=== PATIENT | female | born 1980 | race American Indian/Alaskan Native ===

== ENCOUNTER 2017-02-27 16:30 | Emergency (ER) | payer MEDICARE ==
[2017-02-27 16:57] VITALS: BP 113/78
[2017-02-27 17:33] LABS: Urine Drugs of Abuse Note Disclamer
[2017-02-27 17:35] LABS: Basophils % (Auto) 0.3 % (0.0-1.8); Eosinophils % (Auto) 0.3 % (0.0-4.3); Hematocrit 32.1 % (30.3-42.9); Hemoglobin 10.3 gm/dl (10.1-14.3); Mean Corpuscular HGB Conc 32 % (30-34); Mean Corpuscular Hemoglobin 26 pg (28-32); Mean Corpuscular Volume 82 fl (79-97); Platelet Count 243 K/mm3 (140-440); Red Blood Count 3.91 M/mm3 (3.65-5.03); Red Cell Distribution Width 14.6 % (13.2-15.2); White Blood Count 7.3 K/mm3 (4.5-11.0)
[2017-02-27 17:43] LABS: Anion Gap 15 mmol/L; BUN/Creatinine Ratio 20; Blood Urea Nitrogen 12 mg/dL (7-17); Calcium 8.7 mg/dL (8.4-10.2); Carbon Dioxide 28 mmol/L (22-30); Chloride 98.5 mmol/L (98-107); Glucose 102 mg/dL (65-100); Sodium 137 mmol/L (137-145)
[2017-02-27 17:48] LABS: Bilirubin,Urine NEG (Negative); Blood,Urine NEG (Negative); Ketones,Urine 20 mg/dL (Negative); Leukocyte Esterase,Urine NEG (Negative); Mucus,Urine FEW /HPF; Nitrite,Urine NEG (Negative); Protein,Urine <15 mg/dL mg/dL (Negative); Urobilinogen,Urine < 2.0 mg/dL (<2.0)
--- NOTE | 2017-02-27 17:54 | Emergency Department Report ---
ED Psych HPI - General Chief Complaint: Medical Clearance Stated Complaint: MH EVAL/MANIC Time Seen by Provider: 02/27/17 17:12 Source: EMS Mode of arrival: Stretcher - History of Present Illness Initial Comments: Patient is a 36 years old female history of bipolar disorde,r she was sent [facility] for manic episode. patient refusing to take any medication except for Depakote. Patient stated that she is dealing with a lot of issue in [facility] mainly discrimination and not being treated well by other people but she denied any suicidal ideation or homicidal ideation. Patient does have pressured speech flights of ideas. Associated Psychiatric Symptoms: racing thoughts, delusions History of same: Yes Quality: constant - Related Data Home Medications Medication Instructions Recorded Confirmed Last Taken Divalproex ER [DepaKOTE ER] 1,000 mg PO QHS 02/27/17 02/27/17 Unknown Divalproex ER [DepaKOTE ER] 500 mg PO QDAY 02/27/17 02/27/17 Unknown Allergies Allergy/AdvReac Type Severity Reaction Status Date / Time haloperidol [From Haldol] AdvReac Unknown Verified 02/27/17 16:44 risperidone [From Risperdal] AdvReac Unknown Verified 02/27/17 16:44 ziprasidone [From Geodon] AdvReac Unknown Verified 02/27/17 16:44 ED Review of Systems ROS: Stated complaint: MH EVAL/MANIC Other details as noted in HPI Comment: All other systems reviewed and negative Constitutional: denies: chills, fever Respiratory: denies: cough, shortness of breath, SOB with exertion Cardiovascular: denies: chest pain, palpitations, dyspnea on exertion, orthopnea , edema, syncope Genitourinary: denies: urgency, dysuria, frequency, hematuria, discharge Skin: denies: rash, lesions Neurological: denies: headache, weakness, paresthesias, confusion Psychiatric: anxiety, depression, other (pressure speech, flight of ideas.). denies: auditory hallucinations, visual hallucinations, homicidal thoughts, suicidal thoughts ED Past Medical Hx - Past Medical History Previous Medical History?: Yes Additional medical history: pt with diagnosis of Bipolar, although she denies - Surgical History Past Surgical History?: Yes Additional Surgical History: bilateral knee surgery - Social History Smoking Status: Never Smoker Substance Use Type: None - Medications Home Medications: Home Medications Medication Instructions Recorded Confirmed Last Taken Type Divalproex ER [DepaKOTE ER] 1,000 mg PO QHS 02/27/17 02/27/17 Unknown History Divalproex ER [DepaKOTE ER] 500 mg PO QDAY 02/27/17 02/27/17 Unknown History ED Physical Exam - General Limitations: Altered Mental Status General appearance: alert, in no apparent distress - Head Head exam: Present: atraumatic - Eye Eye exam: Present: normal appearance - ENT ENT exam: Present: normal exam - Neck Neck exam: Present: normal inspection - Respiratory Respiratory exam: Present: normal lung sounds bilaterally. Absent: respiratory distress, wheezes, rales, rhonchi, chest wall tenderness, accessory muscle use, decreased breath sounds, prolonged expiratory - Cardiovascular Cardiovascular Exam: Present: regular rate, normal rhythm, normal heart sounds - Extremities Exam Extremities exam: Present: normal inspection - Back Exam Back exam: Present: normal inspection. Absent: CVA tenderness (R), CVA tenderness (L) - Neurological Exam Neurological exam: Present: alert, oriented X3, CN II-XII intact, normal gait - Psychiatric Psychiatric exam: Present: agitated, anxious, manic. Absent: homicidal ideation , suicidal ideation - Skin Skin exam: Present: warm, normal color ED Course Vital Signs 02/27/17 16:34 Temperature 98.7 F Pulse Rate 90 Respiratory 16 Rate Blood Pressure 113/78 O2 Sat by Pulse 100 Oximetry ED Medical Decision Making - Lab Data Result diagrams: 02/27/17 17:09 02/27/17 17:09 Critical care attestation.: If time is entered above; I have spent that time in minutes in the direct care of this critically ill patient, excluding procedure time. ED Disposition Clinical Impression: Acute psychosis Disposition: DC/TX-65 PSY HOSP/PSY UNIT Is pt being admited?: No Condition: Stable Referrals: PRIMARY CARE, [Primary Care Provider] - 3-5 Days
[2017-02-27] MEDS ORDERED: GEODON IM ONE (17:55)
[2017-02-27] MEDS ORDERED: WATER FOR INJ (PF) 10 ML ONE (18:01)
[2017-02-27] MEDS ORDERED: BENADRYL ONE (18:16)
== END 2017-02-27 23:50 ==
LOC: EEVIPCON 16:30 → ED 16:30
DX: F23 Brief psychotic disorder (principal)
CPT/HCPCS: 36415; 80048; 80307; 81001; 84703; 85025; 96372; 99285; G0480; J3486; 80320; J1200

== ENCOUNTER 2019-08-13 09:40 | Emergency (ER) | payer MEDICARE ==
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
[2019-08-13 10:57] LABS: Basophils % (Auto) 0.4 % (0.0-1.8); Hematocrit 26.8 % (30.3-42.9); Hemoglobin 8.9 gm/dl (10.1-14.3); Lymphocytes # (Auto) 1.8 K/mm3 (1.2-5.4); Mean Corpuscular HGB Conc 33 % (30-34); Mean Corpuscular Volume 83 fl (79-97); Monocytes % (Auto) 10.2 % (0.0-7.3); Platelet Count 281 K/mm3 (140-440); Red Blood Count 3.24 M/mm3 (3.65-5.03); Red Cell Distribution Width 14.1 % (13.2-15.2)
[2019-08-13 11:16] LABS: Calcium 9.6 mg/dL (8.4-10.2)
[2019-08-13] MEDS ORDERED: SODIUM CHLORIDE 0.9% 1000 ML 1,000 ML IV ONE (11:21)
[2019-08-13 14:25] LABS: Bacteria,Urine 1+ /HPF (Negative); Bilirubin,Urine NEG (Negative); Blood,Urine LG (Negative); Color,Urine Yellow (Yellow); Mucus,Urine 2+ /HPF; Urobilinogen,Urine < 2.0 mg/dL (<2.0)
[2019-08-13 14:33] LABS: Amphetamine Screen,Urine PRESUMPTIVE NEGATIVE; Cannabinoid Screen,Urine PRESUMPTIVE NEGATIVE; Cocaine Screen,Urine PRESUMPTIVE NEGATIVE; Methadone Screen,Urine PRESUMPTIVE NEGATIVE; Opiate Screen,Urine PRESUMPTIVE NEGATIVE
[2019-08-13 14:50] LABS: Benzodiazepines Screen,Urine PRESUMPTIVE POSITIVE
[2019-08-13] MEDS ORDERED: HALOPERIDOL LACTATE 5 MG/1 ML INJ IM ONE (17:35)
[2019-08-13] MEDS ORDERED: LORazepam 2 MG/ML VIAL IM ONE (17:36)
[2019-08-13] MEDS ORDERED: diphenhydrAMINE 50 MG/ML VIAL IM ONE (17:36)
[2019-08-13] MEDS: NITROFURANTOIN MONOHYD/M-CRYST 100 MG CAP PO SCH ×2 (17:44→22:45)
[2019-08-14] MEDS ORDERED: HALOPERIDOL LACTATE 5 MG/1 ML INJ IM ONE (04:44)
[2019-08-14] MEDS ORDERED: LORazepam 2 MG/ML VIAL IM ONE (04:45)
[2019-08-14] MEDS ORDERED: diphenhydrAMINE 50 MG/ML VIAL IV ONE (04:47)
[2019-08-14] MEDS: NITROFURANTOIN MONOHYD/M-CRYST 100 MG CAP PO SCH (09:37)
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
[2019-08-14] MEDS ORDERED: diphenhydrAMINE 25 MG CAP PO ONE (11:53)
[2019-08-14] MEDS ORDERED: HALOPERIDOL LACTATE 5 MG/1 ML INJ IM STA (11:54)
[2019-08-14 14:43] VITALS: BP 121/70
[2019-08-14] MEDS ORDERED: BENZTROPINE 1 MG TAB PO SCH (22:00)
[2019-08-14] MEDS ORDERED: BENZTROPINE 2 MG TAB PO SCH (22:00)
[2019-08-14] MEDS ORDERED: traZODone 50 MG TAB PO SCH (22:00)
[2019-08-14] MEDS ORDERED: DIVALPROEX DR 500 MG TAB PO SCH (22:00)
== END 2019-08-14 17:59 ==
LOC: EEVIPCON 09:40 → ED 09:40
DX: F31.9 Bipolar disorder, unspecified (principal); N39.0 Urinary tract infection, site not specified; R41.0 Disorientation, unspecified; R55 Syncope and collapse; F12.10 Cannabis abuse, uncomplicated; Z04.6 Encounter for general psychiatric examination, requested by authority; Z98.890 Other specified postprocedural states; Z79.899 Other long term (current) drug therapy; Z88.8 Allergy status to other drugs, medicaments and biological substances
CPT/HCPCS: 36415; 80048; 80164; 80307; 81001; 84443; 84481; 84703; 85025; 87086; 96361; 96372; 96374; 99285; J1200; J1630; J2060; J7030; 80320; G0480

== ENCOUNTER 2020-01-30 07:34 | Emergency (ER) | payer MEDICARE ==
[2020-01-30 08:58] LABS: Bilirubin,Urine NEG (Negative); Blood,Urine LG (Negative); Color,Urine Yellow (Yellow); Mucus,Urine FEW /HPF; Protein,Urine <15 mg/dL mg/dL (Negative)
[2020-01-30 09:03] LABS: Amphetamine Screen,Urine PRESUMPTIVE NEGATIVE; Benzodiazepines Screen,Urine PRESUMPTIVE NEGATIVE; Cannabinoid Screen,Urine PRESUMPTIVE NEGATIVE; Cocaine Screen,Urine PRESUMPTIVE NEGATIVE; Methadone Screen,Urine PRESUMPTIVE NEGATIVE; Opiate Screen,Urine PRESUMPTIVE NEGATIVE
[2020-01-30 09:15] LABS: Basophils % (Auto) 0.5 % (0.0-1.8); Eosinophils # (Auto) 0.1 K/mm3 (0.0-0.4); Eosinophils % (Auto) 1.1 % (0.0-4.3); Hematocrit 33.2 % (30.3-42.9); Lymphocytes # (Auto) 2.5 K/mm3 (1.2-5.4); Lymphocytes % (Auto) 37.2 % (13.4-35.0); Mean Corpuscular HGB Conc 33 % (30-34); Mean Corpuscular Volume 80 fl (79-97); Monocytes # (Auto) 0.8 K/mm3 (0.0-0.8); Monocytes % (Auto) 12.5 % (0.0-7.3); Platelet Count 198 K/mm3 (140-440); Red Blood Count 4.12 M/mm3 (3.65-5.03); Red Cell Distribution Width 16.5 % (13.2-15.2)
[2020-01-30 09:34] LABS: Blood Urea Nitrogen 12 mg/dL (7-17); Calcium 9.1 mg/dL (8.4-10.2); Hemolysis Index 2
[2020-01-30 09:35] LABS: BUN/Creatinine Ratio 20
[2020-01-30] MEDS ORDERED: HALOPERIDOL LACTATE 5 MG/1 ML INJ IM ONE (11:35)
[2020-01-30] MEDS ORDERED: diphenhydrAMINE 50 MG/ML VIAL IM ONE (11:36)
--- NOTE | 2020-01-30 11:50 | Emergency Department Report ---
ED Psych HPI - General Chief Complaint: Psych Stated Complaint: CANNOT SLEEP BIPOLAR DISORDER Time Seen by Provider: 01/30/20 11:23 Source: patient, family Mode of arrival: Ambulatory Limitations: No Limitations - History of Present Illness Initial Comments: This is a 39-year-old female with history of bipolar disorder who presents with insomnia, abnormal behavior. History obtained from Ivonne her mother. Phone number cell phone [phone] home #[phone] Patient has not slept in 4 to 5 days. She has taken the car and driven away from the home. Patient told her mother that she drove 80 miles an hour on the wrong side of the highway for at least 2 miles. Patient has picked up strangers. Patient recently stayed at a hotel without telling her parents her whereabouts. She also has been given the money away. Patient persists that she is just dehydrated. She says "you know how celebrities get dehydrated. I just need an IV. I just need fluids and then I could rest." Patient persists on describing the actions of patients in the emergency room. She speaks on multiple subjects unrelated to the conversation or situation. Patient takes medication Zyprexa and Depakote. Sometimes her mother administers her medications. She lives with both parents. She receives care at the [facility]. Recently released from inpatient psychiatric care 4 weeks ago according to mother's recollection. Complaint: other (Insomnia, abnormal behavior) -: days(s) (4 to 5 days ago) Associated Psychiatric Symptoms: racing thoughts, other (Abnormal behavior insomnia) History of same: Yes Quality: constant Improves With: none Worsens With: none Context: other (Patient is unclear she is taking her medication) Treatments Prior to Arrival: none - Related Data Home Medications Medication Instructions Recorded Confirmed Last Taken Divalproex ER [DepaKOTE ER] 500 mg PO BID 02/27/17 10/23/19 10/22/19 Benztropine [Cogentin] 1 mg PO BID 08/23/19 10/23/19 10/22/19 OLANzapine [ZyPREXA] 10 mg PO QHS 08/23/19 10/28/19 10/23/19 Ferrous Sulfate [Ferrous Sulfate 324 mg PO BID 10/23/19 10/23/19 Unknown 324 MG] Allergies Allergy/AdvReac Type Severity Reaction Status Date / Time lorazepam [From Ativan] Allergy Unknown Verified 08/23/19 04:29 lithium AdvReac Unknown Verified 10/25/19 21:22 risperidone [From Risperdal] AdvReac Unknown Verified 02/27/17 16:44 ziprasidone [From Geodon] AdvReac Unknown Verified 02/27/17 16:44 ED Review of Systems ROS: Stated complaint: CANNOT SLEEP BIPOLAR DISORDER Other details as noted in HPI Comment: All other systems reviewed and negative Cardiovascular: denies: chest pain Gastrointestinal: denies: abdominal pain, nausea, vomiting Psychiatric: other (racing thoughts, insomnia) ED Past Medical Hx - Past Medical History Previous Medical History?: Yes Hx Psychiatric Treatment: Yes (Bi polar) Additional medical history: pt with diagnosis of Bipolar, although she denies - Surgical History Past Surgical History?: Yes Additional Surgical History: bilateral knee surgery - Social History Smoking Status: Never Smoker Substance Use Type: Marijuana - Medications Home Medications: Home Medications Medication Instructions Recorded Confirmed Last Taken Type Divalproex ER [DepaKOTE ER] 500 mg PO BID 02/27/17 10/23/19 10/22/19 History Benztropine [Cogentin] 1 mg PO BID 08/23/19 10/23/19 10/22/19 History OLANzapine [ZyPREXA] 10 mg PO QHS 08/23/19 10/28/19 10/23/19 History Ferrous Sulfate [Ferrous Sulfate 324 mg PO BID 10/23/19 10/23/19 Unknown History 324 MG] ED Physical Exam - General Limitations: No Limitations General appearance: alert, in no apparent distress - Head Head exam: Present: atraumatic, normocephalic - Eye Eye exam: Present: normal appearance - ENT ENT exam: Present: mucous membranes moist - Neck Neck exam: Present: normal inspection, full ROM - Respiratory Respiratory exam: Present: normal lung sounds bilaterally. Absent: respiratory distress, wheezes, rales, rhonchi - Cardiovascular Cardiovascular Exam: Present: regular rate, normal rhythm, normal heart sounds. Absent: systolic murmur, diastolic murmur, rubs, gallop - GI/Abdominal GI/Abdominal exam: Present: soft, normal bowel sounds. Absent: distended, tenderness, guarding, rebound - Extremities Exam Extremities exam: Present: normal inspection - Neurological Exam Neurological exam: Present: alert, oriented X3, other (hyperverbal, circular speech, hyperactive) - Psychiatric Psychiatric exam: Present: normal affect, normal mood - Skin Skin exam: Present: warm, dry, intact, normal color. Absent: rash ED Course Vital Signs 01/30/20 01/30/20 01/31/20 08:15 19:12 01:46 Temperature 98.6 F 98.4 F 97.6 F Pulse Rate 97 H 98 H 88 Respiratory 20 18 18 Rate Blood Pressure 144/103 133/84 91/54 O2 Sat by Pulse 96 93 95 Oximetry 01/31/20 09:01 Temperature 98.0 F Pulse Rate 106 H Respiratory 18 Rate Blood Pressure 149/81 O2 Sat by Pulse 94 Oximetry ED Medical Decision Making - Lab Data Result diagrams: 01/30/20 08:37 01/30/20 08:37 Laboratory Results - last 24 hr 01/30/20 01/30/20 01/30/20 08:25 08:25 08:37 WBC RBC Hgb Hct MCV MCH MCHC RDW Plt Count Lymph % (Auto) [place] % (Auto) Eos % (Auto) Baso % (Auto) Lymph # (Auto) [place] # (Auto) Eos # (Auto) Baso # (Auto) Seg Neutrophils % Seg Neutrophils # Sodium Potassium Chloride Carbon Dioxide Anion Gap BUN Creatinine Estimated GFR BUN/Creatinine Ratio Glucose Calcium HCG, Qual Urine Color Yellow Urine Turbidity Hazy Urine pH 6.0 Ur Specific [place] 1.019 Urine Protein <15 mg/dl Urine Glucose (UA) Neg Urine Ketones Tr Urine Blood Lg Urine Nitrite Neg Urine Bilirubin Neg Urine Urobilinogen 2.0 Ur Leukocyte Esterase Neg Urine WBC (Auto) 1.0 Urine RBC (Auto) 116.0 U Epithel Cells (Auto) < 1.0 Urine Mucus Few Salicylates < 0.3 L Urine Opiates Screen Presumptive negative Urine Methadone Screen Presumptive negative Acetaminophen Ur Barbiturates Screen Presumptive negative Ur Phencyclidine Scrn Presumptive negative Ur Amphetamines Screen Presumptive negative U Benzodiazepines Scrn Presumptive negative Urine Cocaine Screen Presumptive negative U Marijuana (THC) Screen Presumptive negative Drugs of Abuse Note Disclamer Plasma/Serum Alcohol 01/30/20 01/30/20 01/30/20 08:37 08:37 08:37 WBC RBC Hgb Hct MCV MCH MCHC RDW Plt Count Lymph % (Auto) [place] % (Auto) Eos % (Auto) Baso % (Auto) Lymph # (Auto) [place] # (Auto) Eos # (Auto) Baso # (Auto) Seg Neutrophils % Seg Neutrophils # Sodium 141 Potassium 4.0 Chloride 102.4 Carbon Dioxide 23 Anion Gap 20 BUN 12 Creatinine 0.6 Estimated GFR > 60 BUN/Creatinine Ratio 20 Glucose 128 H Calcium 9.1 HCG, Qual Urine Color Urine Turbidity Urine pH Ur Specific [place] Urine Protein Urine Glucose (UA) Urine Ketones Urine Blood Urine Nitrite Urine Bilirubin Urine Urobilinogen Ur Leukocyte Esterase Urine WBC (Auto) Urine RBC (Auto) U Epithel Cells (Auto) Urine Mucus Salicylates Urine Opiates Screen Urine Methadone Screen Acetaminophen 5.0 L Ur Barbiturates Screen Ur Phencyclidine Scrn Ur Amphetamines Screen U Benzodiazepines Scrn Urine Cocaine Screen U Marijuana (THC) Screen Drugs of Abuse Note Plasma/Serum Alcohol < 0.01 01/30/20 01/30/20 08:37 08:37 WBC 6.7 RBC 4.12 Hgb 11.0 Hct 33.2 MCV 80 MCH 27 L MCHC 33 RDW 16.5 H Plt Count 198 Lymph % (Auto) 37.2 H [place] % (Auto) 12.5 H Eos % (Auto) 1.1 Baso % (Auto) 0.5 Lymph # (Auto) 2.5 [place] # (Auto) 0.8 Eos # (Auto) 0.1 Baso # (Auto) 0.0 Seg Neutrophils % 48.7 Seg Neutrophils # 3.3 Sodium Potassium Chloride Carbon Dioxide Anion Gap BUN Creatinine Estimated GFR BUN/Creatinine Ratio Glucose Calcium HCG, Qual Negative Urine Color Urine Turbidity Urine pH Ur Specific [place] Urine Protein Urine Glucose (UA) Urine Ketones Urine Blood Urine Nitrite Urine Bilirubin Urine Urobilinogen Ur Leukocyte Esterase Urine WBC (Auto) Urine RBC (Auto) U Epithel Cells (Auto) Urine Mucus Salicylates Urine Opiates Screen Urine Methadone Screen Acetaminophen Ur Barbiturates Screen Ur Phencyclidine Scrn Ur Amphetamines Screen U Benzodiazepines Scrn Urine Cocaine Screen U Marijuana (THC) Screen Drugs of Abuse Note Plasma/Serum Alcohol Laboratory Results - last 24 hr 01/30/20 01/30/20 01/30/20 08:25 08:25 08:37 WBC RBC Hgb Hct MCV MCH MCHC RDW Plt Count Lymph % (Auto) [place] % (Auto) Eos % (Auto) Baso % (Auto) Lymph # (Auto) [place] # (Auto) Eos # (Auto) Baso # (Auto) Seg Neutrophils % Seg Neutrophils # Sodium Potassium Chloride Carbon Dioxide Anion Gap BUN Creatinine Estimated GFR BUN/Creatinine Ratio Glucose Calcium HCG, Qual Urine Color Yellow Urine Turbidity Hazy Urine pH 6.0 Ur Specific [place] 1.019 Urine Protein <15 mg/dl Urine Glucose (UA) Neg Urine Ketones Tr Urine Blood Lg Urine Nitrite Neg Urine Bilirubin Neg Urine Urobilinogen 2.0 Ur Leukocyte Esterase Neg Urine WBC (Auto) 1.0 Urine RBC (Auto) 116.0 U Epithel Cells (Auto) < 1.0 Urine Mucus Few Salicylates < 0.3 L Urine Opiates Screen Presumptive negative Urine Methadone Screen Presumptive negative Acetaminophen Ur Barbiturates Screen Presumptive negative Valproic Acid Ur Phencyclidine Scrn Presumptive negative Ur Amphetamines Screen Presumptive negative U Benzodiazepines Scrn Presumptive negative Urine Cocaine Screen Presumptive negative U Marijuana (THC) Screen Presumptive negative Drugs of Abuse Note Disclamer Plasma/Serum Alcohol 01/30/20 01/30/20 01/30/20 08:37 08:37 08:37 WBC RBC Hgb Hct MCV MCH MCHC RDW Plt Count Lymph % (Auto) [place] % (Auto) Eos % (Auto) Baso % (Auto) Lymph # (Auto) [place] # (Auto) Eos # (Auto) Baso # (Auto) Seg Neutrophils % Seg Neutrophils # Sodium 141 Potassium 4.0 Chloride 102.4 Carbon Dioxide 23 Anion Gap 20 BUN 12 Creatinine 0.6 Estimated GFR > 60 BUN/Creatinine Ratio 20 Glucose 128 H Calcium 9.1 HCG, Qual Urine Color Urine Turbidity Urine pH Ur Specific [place] Urine Protein Urine Glucose (UA) Urine Ketones Urine Blood Urine Nitrite Urine Bilirubin Urine Urobilinogen Ur Leukocyte Esterase Urine WBC (Auto) Urine RBC (Auto) U Epithel Cells (Auto) Urine Mucus Salicylates Urine Opiates Screen Urine Methadone Screen Acetaminophen 5.0 L Ur Barbiturates Screen Valproic Acid Ur Phencyclidine Scrn Ur Amphetamines Screen U Benzodiazepines Scrn Urine Cocaine Screen U Marijuana (THC) Screen Drugs of Abuse Note Plasma/Serum Alcohol < 0.01 01/30/20 01/30/20 01/30/20 08:37 08:37 08:37 WBC 6.7 RBC 4.12 Hgb 11.0 Hct 33.2 MCV 80 MCH 27 L MCHC 33 RDW 16.5 H Plt Count 198 Lymph % (Auto) 37.2 H [place] % (Auto) 12.5 H Eos % (Auto) 1.1 Baso % (Auto) 0.5 Lymph # (Auto) 2.5 [place] # (Auto) 0.8 Eos # (Auto) 0.1 Baso # (Auto) 0.0 Seg Neutrophils % 48.7 Seg Neutrophils # 3.3 Sodium Potassium Chloride Carbon Dioxide Anion Gap BUN Creatinine Estimated GFR BUN/Creatinine Ratio Glucose Calcium HCG, Qual Negative Urine Color Urine Turbidity Urine pH Ur Specific [place] Urine Protein Urine Glucose (UA) Urine Ketones Urine Blood Urine Nitrite Urine Bilirubin Urine Urobilinogen Ur Leukocyte Esterase Urine WBC (Auto) Urine RBC (Auto) U Epithel Cells (Auto) Urine Mucus Salicylates Urine Opiates Screen Urine Methadone Screen Acetaminophen Ur Barbiturates Screen Valproic Acid 85.8 Ur Phencyclidine Scrn Ur Amphetamines Screen U Benzodiazepines Scrn Urine Cocaine Screen U Marijuana (THC) Screen Drugs of Abuse Note Plasma/Serum Alcohol - Medical Decision Making Acute Annmarie with insomnia, hyperverbal speech and dangerous behavior. [address] Patient requires involuntary hold. CHemical restraint required upon patient's arrival to treatment room. I was concerned for impulsive behavior and elopement. I have reviewed labs. UA contaminated sample. No indication of UTI. Patient is medically clear for psychiatric care. Valproic level at therapeutic level. Patient and mother both corroborated that typical sedative agents cause aggression. I have reviewed electronic record. During previous ED encounter, psychiatrist ordered olanzapine 2.5 mg p.o. every 4h PRN agitation. Patient received p.o. olanzapine as well as diphenhydramine IM for sedation. On reexamination after receiving medication, she is ambulatory cooperative. Patient was accepted to [facility]. Critical Care Time: Yes Critical care time in (mins) excluding proc time.: 40 Critical care attestation.: If time is entered above; I have spent that time in minutes in the direct care of this critically ill patient, excluding procedure time. 40 minutes of critical care time were used excluding procedures to take care of the patient. Patient required multiple interventions and reassessments. I spoke extensively with mother. I spoke extensively with patient. Nurse and I conferred regarding treatment plan. I was concerned for escalating behavior. Concern for elopement. I was concerned for harm to patient and medical staff. ED Disposition Clinical Impression: Bipolar I disorder with annmaire Disposition: [id number]/TX-[id number] ANOTHER TYPE HLTHCARE Is pt being admited?: No Does the pt Need Aspirin: No Condition: Stable
[2020-01-30] MEDS ORDERED: DIVALPROEX DR 500 MG TAB PO SCH (22:00)
[2020-01-31] MEDS ORDERED: DIVALPROEX DR 500 MG TAB PO SCH (10:00)
--- NOTE | 2020-01-31 11:33 | Consultation ---
History of Present Illness - Reason for Consult Consult date: 01/31/20 Reason for consult: MHE Requesting physician: JOSEPH HARE - History of Present Psychiatric Illness Per Ed Provider: This is a 39-year-old female with history of bipolar disorder who presents with insomnia, abnormal behavior. History obtained from Ivonne her mother. Phone number cell phone [phone] home #[phone]. Patient has not slept in 4 to 5 days. She has taken the car and driven away from the home. Patient told her mother that she drove 80 miles an hour on the wrong side of the highway for at least 2 miles. Patient has picked up strangers. Patient recently stayed at a hotel without telling her parents her whereabouts. She also has been given the money away. Patient persists that she is just dehydrated. She says "you know how celebrities get dehydrated. I just need an IV. I just need fluids and then I could rest." Patient persists on describing the actions of patients in the emergency room. She speaks on multiple subjects unrelated to the conversation or situation. Patient takes medication Zyprexa and Depakote. Sometimes her mother administers her medications. She lives with both parents. She receives care at the [facility]. Per MHA: Pt is a 38 yo AA female presenting to ED for MHE, as pt has been non- compliant with medication and displaying flight of ideas, disorganzied thoughts. Per medical records, pt has hx of chronic non-compliance with medication. Pt reports the medication is poision and she is cured of mental illess. During ax, pt presented as manic and hyperverbal, with tangential thought process and intrusive behaviors. Pt required frequent redirection and ax. Pt displays paranoid and delusional thought content, as she reports that she has been securing million dollar contacts, new house and car" and "cured on mental illess and COIVD by her glove tagger". Pt then went on a tangent about needing asessor to advocate for her not to take medications and d/c on 01/31/20 in order to buy her new car. Pt is refusing to provide any insight regarding dx and admission to IP tx due to active paranoia. Pt reports sleep. Pt reports sleeping two-four hours in the past ten days. HPI Patient is a single disabled 38-year-old -Greek female who resides with family with past psychiatric history of anxiety and bipolar who is well known to me from prior multiple visits to this facility who presented to the ED by family with compliants of insomnia for 4 days. Patient presents today with complaints of dehydration, states she was notified them because she is in therap y which is recently started rectal do almost worth $3 million, and she has just bought a car and a house she was having the symptoms that celebrities have because they also get dehydrated. Patient states she is not currently manic because she has written down a set of symptoms that she does whenever she is manic. PAST PSYCHIATRIC HISTORY: Diagnoses: Anxiety and bipolar Suicide attempts or Self-harm behavior: Yes Prior psychiatric hospitalizations: Yes but facility not available Substance Abuse history: Marijuana Previous psychiatric medications tried: Yes Depakote Outpatient treatment: PAST MEDICAL HISTORY: Family Psychiatric History None reported or documented SOCIAL HISTORY Marital Status: Single Living Arrangements: Currently homeless Employment Status: Disabled Access to guns/weapons: Not reported Education: Not reported History of Abuse: Not reported Legal History: Not reported REVIEW OF SYSTEMS ROS cannot be reliably obtained from the patient due to her confusion and victor hugo nolence. MENTAL STATUS EXAMINATION General Appearance and Behavior: Age appropriate, wearing appropriate clothes, poor eye contact, cooperative with questioning Cooperation: Cooperative Psychomotor Behavior: Increased psychomotor agitation Mood: Angry sad Affect and affective range: labile and euphoric Thought Process: Tangential, Circumstantial, Illogical, Blocked, and Loose associations Thought Content: Not within reality, Flight of ideas, Illogical, Grandiose Speech: Increased regular rate and rhythm, speech abnormality and blocking Intellectual Functioning: Average Suicidal Ideation: Denies SI Homicidal Ideation: Denies HI Impulse Control: Unimpaired Insight and Judgment: Impaired Memory: Unassessable Attention: Distracted Orientation: Alert, and confused Assessment and Plan - Psychiatric problem (1) Bipolar I disorder with acute earline Current Visit: Yes Status: Acute RECOMMENDATIONS MEDICATIONS: Restart Deparkote. Benardryl and Haldol for acute hyperactive, manic episode. Trazodone for insomnia QHS Risks, benefits and alternatives of medications discussed with the patient, questions answered and consent obtained from patient. PSYCHOTHERAPY: Supportive psychotherapy provided MEDICAL: Per primary team DELIRIUM PRECAUTIONS: Please re-orient patient frequently, keep lights on during the day, and minimize benzodiazepines and opiates as these medications could worsen patient's confusion. SAMPLE BODY BUILDER: DISPOSITION: Indication for acute inpatient psychiatric hospitalization at this time LEGAL STATUS: 1013 FOLLOW-UP: Will follow Thank you for the consult. Please contact with any questions and/or concerns. Medications and Allergies Allergies Allergy/AdvReac Type Severity Reaction Status Date / Time lorazepam [From Ativan] Allergy Unknown Verified 08/23/19 04:29 lithium AdvReac Unknown Verified 10/25/19 21:22 risperidone [From Risperdal] AdvReac Unknown Verified 02/27/17 16:44 ziprasidone [From Geodon] AdvReac Unknown Verified 02/27/17 16:44 Home Medications Medication Instructions Recorded Confirmed Last Taken Type Divalproex ER [DepaKOTE ER] 500 mg PO BID 02/27/17 10/23/19 10/22/19 History Benztropine [Cogentin] 1 mg PO BID 08/23/19 10/23/19 10/22/19 History OLANzapine [ZyPREXA] 10 mg PO QHS 08/23/19 10/28/19 10/23/19 History Ferrous Sulfate [Ferrous Sulfate 324 mg PO BID 10/23/19 10/23/19 Unknown History 324 MG] Active Meds: Active Medications Divalproex Sodium (Depakote Dr) 500 mg PO [facility] Last Admin: 01/31/20 10:59 Dose: 500 mg Documented by: [facility]ival[facility]ex [facility] Admin: 01/30/20 23:15 Dose: 1,000 mg Documented by: [facility]) [facility] Last Admin: 01/30/20 23:15 Dose: 20 mg Documented by: Olanzapine (Zyprexa) 2.5 mg PO Q4H PRN PRN Reason: Agitation Last Admin: 01/31/20 11:03 Dose: 2.5 mg Documented by: Mental Status Exam - Vital signs Last Vital Signs Temp 98.0 F 01/31/20 09:01 Pulse 106 H 01/31/20 09:01 Resp 18 01/31/20 09:01 BP 149/81 01/31/20 09:01 Pulse Ox 94 01/31/20 09:01 Results Result Diagrams: 01/30/20 08:37 01/30/20 08:37 All other labs normal.
[2020-01-31] MEDS ORDERED: DIVALPROEX ER 500 MG TAB PO ONE (11:59)
[2020-01-31] MEDS ORDERED: ZIPRASIDONE MESYLATE 20 MG VIAL IM SCH (12:00)
[2020-01-31 19:16] VITALS: BP 122/64
[2020-01-31] MEDS ORDERED: ZOLPIDEM 5 MG TAB PO SCH (21:00)
== END 2020-01-31 16:30 | disposition other institution (70) ==
LOC: ED 07:34
DX: F31.0 Bipolar disorder, current episode hypomanic (principal); Z79.899 Other long term (current) drug therapy; F12.10 Cannabis abuse, uncomplicated; Z88.8 Allergy status to other drugs, medicaments and biological substances
CPT/HCPCS: 36415; 80048; 80164; 80307; 81001; 84703; 85025; 96372; 99285; J1200; J1630; 80320; G0480

== ENCOUNTER 2020-11-01 10:03 | Emergency (ER) | payer MEDICARE ==
[2020-11-01 10:58] LABS: Basophils % (Auto) 0.5 % (0.0-1.8); Eosinophils # (Auto) 0.1 K/mm3 (0.0-0.4); Eosinophils % (Auto) 1.6 % (0.0-4.3); Hematocrit 31.8 % (30.3-42.9); Lymphocytes # (Auto) 2.9 K/mm3 (1.2-5.4); Lymphocytes % (Auto) 39.7 % (13.4-35.0); Mean Corpuscular HGB Conc 31 % (30-34); Mean Corpuscular Volume 80 fl (79-97); Monocytes # (Auto) 0.7 K/mm3 (0.0-0.8); Monocytes % (Auto) 9.1 % (0.0-7.3); Platelet Count 299 K/mm3 (140-440); Red Cell Distribution Width 15.7 % (13.2-15.2)
--- NOTE | 2020-11-01 12:40 | Emergency Department Report ---
ED Female HPI - General Chief complaint: Vaginal Bleeding Stated complaint: HEAVY VAGINAL BLEEDING, DEPRESSED Time Seen by Provider: 11/01/20 11:59 Source: patient Mode of arrival: Ambulatory Limitations: No Limitations - History of Present Illness Initial comments: 39-year-old female, history of dysfunctional uterine bleeding, bipolar disorder, presents to ED with vaginal bleeding. Patient states she has been having heavy vaginal bleeding for "a while." Patient states currently she has been bleeding for 2 weeks straight. She states she was seen at [facility] on yesterday for same. Patient is concerned she may need blood transfusion. She denies any dizziness or syncopal episode. Patient reports she has iron pills at home, but does not take them because she already has to take so many other medications for her bipolar disorder. Patient also reports some depression. 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 Patient reports that the client that she is working with had thoughts of committing suicide and called her to speak with her. Patient states this has since caused her to feel very depressed. She states she feels overwhelmed by her job. She states that she often wonders what would have happened if she would not have been available to speak with her client when she called her. Patient currently denies any SI or HI. Patient currently has a baby doll wrapped in a blanket with her. Patient states, "I mean, I'm a grown ass woman carrying around a baby doll. Something's not right." Patient states she carries the doll for comfort. Patient states she is compliant with all of her psychiatric medications. She has them at bedside. Patient states she sees a psychiatrist, Dr. James, states she has an appointment tomorrow. Complaint: vaginal bleeding -: week(s) (2) Severity: moderate Consistency: constant Improves with: none Worsens with: none Are you Now?: No Associated Symptoms: vaginal bleeding. denies: vaginal discharge, shortness of breath, syncope - Related Data Home Medications Medication Instructions Recorded Confirmed Last Taken Divalproex ER [DepaKOTE ER] 500 mg PO BID 02/27/17 10/23/19 10/22/19 Benztropine [Cogentin] 1 mg PO BID 08/23/19 10/23/19 10/22/19 OLANzapine [ZyPREXA] 10 mg PO QHS 08/23/19 10/28/19 10/23/19 Ferrous Sulfate [Ferrous Sulfate 324 mg PO BID 10/23/19 10/23/19 Unknown 324 MG] Allergies Allergy/AdvReac Type Severity Reaction Status Date / Time haloperidol [From Haldol] Allergy Unknown Verified 11/01/20 10:19 lorazepam [From Ativan] Allergy Unknown Verified 08/23/19 04:29 lithium AdvReac Unknown Verified 10/25/19 21:22 risperidone [From Risperdal] AdvReac Unknown Verified 02/27/17 16:44 ziprasidone [From Geodon] AdvReac Unknown Verified 02/27/17 16:44 ED Review of Systems ROS: Stated complaint: HEAVY VAGINAL BLEEDING, DEPRESSED Other details as noted in HPI Comment: All other systems reviewed and negative Constitutional: denies: fever Gastrointestinal: denies: abdominal pain Genitourinary: abnormal menses Psychiatric: depression. denies: auditory hallucinations, visual h allucinations, homicidal thoughts, suicidal thoughts ED Past Medical Hx - Past Medical History Hx Psychiatric Treatment: Yes (Bi polar) Additional medical history: pt with diagnosis of Bipolar, although she denies - Surgical History Additional Surgical History: bilateral knee surgery - Social History Smoking Status: Never Smoker Substance Use Type: None - Medications Home Medications: Home Medications Medication Instructions Recorded Confirmed Last Taken Type Divalproex ER [DepaKOTE ER] 500 mg PO BID 02/27/17 10/23/19 10/22/19 History Benztropine [Cogentin] 1 mg PO BID 08/23/19 10/23/19 10/22/19 History OLANzapine [ZyPREXA] 10 mg PO QHS 08/23/19 10/28/19 10/23/19 History Ferrous Sulfate [Ferrous Sulfate 324 mg PO BID 10/23/19 10/23/19 Unknown History 324 MG] ED Physical Exam - General Limitations: No Limitations General appearance: alert, in no apparent distress - Head Head exam: Present: atraumatic, normocephalic - Eye Eye exam: Present: normal appearance, EOMI - ENT ENT exam: Present: mucous membranes moist - Neck Neck exam: Present: normal inspection - Respiratory Respiratory exam: Present: normal lung sounds bilaterally. Absent: respiratory distress - Cardiovascular Cardiovascular Exam: Present: regular rate, normal rhythm - GI/Abdominal GI/Abdominal exam: Present: soft. Absent: distended, tenderness - External exam: Present: normal external exam Speculum exam: Present: vaginal bleeding (mild, no pooling of blood present). Absent: vaginal discharge Bi-manual exam: Present: normal bi-manual exam - Extremities Exam Extremities exam: Present: normal inspection - Neurological Exam Neurological exam: Present: alert, oriented X3 - Psychiatric Psychiatric exam: Present: normal affect, normal mood - Skin Skin exam: Present: warm, dry, intact, normal color ED Course Vital Signs 11/01/20 11/01/20 11/01/20 10:23 12:47 14:12 Temperature 99.5 F Pulse Rate 108 H 108 H 87 Respiratory 18 18 19 Rate Blood Pressure 129/73 Blood Pressure 128/82 128/71 [Left] O2 Sat by Pulse 98 99 99 Oximetry ED Medical Decision Making - Lab Data Result diagrams: 11/01/20 10:38 - Medical Decision Making 39 yo F w/ dysfunctional uterine bleeding. test negative. Hemoglobin within normal limits. Pelvic exam shows only mild bleeding, no CMT present. Wet prep negative. Pt advised to f/u with her blockmason and to take the iron pills that she already has. Patient also reported hx bipolar disorder, currently feeling depressed secondary to her client from peer counseling epressing thoughts of suicide. Pt states she called [facility] but wants to know if we think she needs inpatient treatment. Pt denies SI, HI, hallucinations. She does not feel that she is a harm to herself or others, but states that in her parents eyes she is a harm to herself because she goes out with men. Pt reports she met someone last night but did not have sex with them because she knows that is unsafe. She states her parents fear that she has sex with everyone she meets. Pt seen and evaluated by psychiatry who does not feel that pt meets inp atient criteria. Pt reports that she has an appt w/ her therapist tomorrow. Pt states she does not feel manic right now, only a bit depressed. She agrees to return to ED if her symptoms worsen. Father at bedside and is agreeable with this plan. - Differential Diagnosis bipolar, DUB, ectopic , miscarriage, anemia Critical care attestation.: If time is entered above; I have spent that time in minutes in the direct care of this critically ill patient, excluding procedure time. ED Disposition Clinical Impression: Bipolar disorder, DUB (dysfunctional uterine bleeding) Disposition: DC- TO HOME OR SELFCARE Is pt being admited?: No Condition: Stable Instructions: Managing Bipolar Disorder, Abnormal Uterine Bleeding, [id number] Referrals: PRIMARY CARE, [Primary Care Provider] - 3-5 Days Time of Disposition: 13:31
[2020-11-01 13:11] LABS: Bilirubin,Urine NEG (Negative); Blood,Urine LG (Negative); Color,Urine Yellow (Yellow); Mucus,Urine 3+ /HPF
--- NOTE | 2020-11-01 13:11 | Consultation ---
History of Present Illness - Reason for Consult Consult date: 11/01/20 Reason for consult: Evaluation - History of Present Psychiatric Illness Per Ed Note: 39-year-old female, history of dysfunctional uterine bleeding, bipolar disorder, presents to ED with vaginal bleeding. Patient states she has been having heavy vaginal bleeding for "a while." Patient states currently she has been bleeding for 2 weeks straight. She states she was seen at [facility] on yesterday for same. Patient is concerned she may need blood transfusion. She denies any dizziness or syncopal episode. Patient reports she has iron pills at home, but does not take them because she already has to take so many other medications for her bipolar disorder. Patient also reports some depression. 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 Patient states this has since caused her to feel very depressed. She states she feels overwhelmed by her job. She states that she often wonders what would have happened if she would not have been available to speak with her client when she called her. Patient currently denies any SI o r HI. Patient currently has a baby doll wrapped in a blanket with her. Patient states, "I mean, I'm a grown as woman carrying around a baby doll. Something's not right." Patient states she is compliant with all of her psychiatric medications. She has them at bedside. Rosa Harrell is a 39 year old female with a history of Bipolar and Anxiety disorder who presents to the Ed for Vaginal Bleeding. In my interview with the patient, having multiple psychiatric inpatient admissions and that her last admission was at [facility] for manic episode about three months ago. She reports that she sees Dr. James- psychiatric outpatient at [facility]. 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 Patient reports attending daily therapy session. She denies having manic symptoms, denies any current suicidal/homicidal ideation and denies hallucination. PAST PSYCHIATRIC HISTORY: Diagnoses: Anxiety, Bipolar Suicide attempts or Self-harm behavior: Denies Prior psychiatric hospitalizations:Yes Substance Abuse history: Denies Previous psychiatric medications tried: Ambien, Duloxetine, Effexor, Bentropine, Abilify Outpatient treatment: unknown PAST MEDICAL HISTORY: None reported or document Family Psychiatric History: None reported or documented SOCIAL HISTORY Marital Status: Single Living Arrangements: Lives with parents Employment Status: Employed Access to guns/weapons: denies Education: 2 year College History of Abuse: Denies Legal History: Denies REVIEW OF SYSTEMS Constitutional: Negative for weight loss ENT: Negative for stridor Respiratory: Negative for cough or hemoptysis All other systems reviewed and are negative MENTAL STATUS EXAMINATION General Appearance and Behavior: Age appropriate, wearing appropriate clothes, cooperative, polite with questioning, fair eye contact, calm Cooperation: cooperative Psychomotor Behavior: Psychomotor normal Mood: "Depressed" Affect and affective range: congruent with stated mood Thought Process: goal directed Thought Content: Not SI Speech: Normal volume, Regular rate and rhythm Suicidal Ideation: Denies Homicidal Ideation: Denies hallucination: Denies Delusions: None elicited Impulse Control: Questionable Insight and Judgment: Limited Memory: Intact Attention: attentive, engaging Orientation: Alert and oriented Diagnoses: Bipolar Disorder, Current episode, Depressed, Moderate- F31.32 Treatment Plan Continue Home medications PSYCHOTHERAPY: Supportive psychotherapy provided MEDICAL: Per primary team DELIRIUM PRECAUTIONS: Please re-orient patient frequently, keep lights on during the day, and minimize benzodiazepines and opiates as these medications could worsen patient's confusion. SHANK BONER: Per medical team DISPOSITION:Do not recommend acute psychiatric inpatient treatment Will sign off. The patient should be compliant with medications, not to use drugs and not to drink alcohol. The patient understands that if suicidal ideas, homicidal ideas or any endangering thoughts/behavior should arise, they should immediately seek for emergent assistance including but not limited to crisis hot line and emergency room. Follow up with outpatient psychiatry and PCP within 7- 14 day post discharge. Please contact with any questions and/or concerns. Thank you for the consult. Case staffed with Dr. Paul Medications and Allergies Allergies Allergy/AdvReac Type Severity Reaction Status Date / Time haloperidol [From Haldol] Allergy Unknown Verified 11/01/20 10:19 lorazepam [From Ativan] Allergy Unknown Verified 08/23/19 04:29 lithium AdvReac Unknown Verified 10/25/19 21:22 risperidone [From Risperdal] AdvReac Unknown Verified 02/27/17 16:44 ziprasidone [From Geodon] AdvReac Unknown Verified 02/27/17 16:44 Home Medications Medication Instructions Recorded Confirmed Last Taken Type Divalproex ER [DepaKOTE ER] 500 mg PO BID 02/27/17 10/23/19 10/22/19 History Benztropine [Cogentin] 1 mg PO BID 08/23/19 10/23/19 10/22/19 History OLANzapine [ZyPREXA] 10 mg PO QHS 08/23/19 10/28/19 10/23/19 History Ferrous Sulfate [Ferrous Sulfate 324 mg PO BID 10/23/19 10/23/19 Unknown History 324 MG] Mental Status Exam - Vital signs Last Vital Signs Temp 99.5 F 11/01/20 10:23 Pulse 108 H 11/01/20 12:47 Resp 18 11/01/20 12:47 BP 128/82 11/01/20 12:47 Pulse Ox 99 11/01/20 12:47 Results Result Diagrams: 11/01/20 10:38 Abnormal lab results 11/01/20 Range/Units 10:38 Hgb 10.0 L (10.1-14.3) gm/dl MCH 25 L (28-32) pg RDW 15.7 H (13.2-15.2) % Lymph % (Auto) 39.7 H (13.4-35.0) % [place] % (Auto) 9.1 H (0.0-7.3) % All other labs normal.
[2020-11-01 13:12] LABS: RBC,Urine > 182.0 /HPF (0.0-6.0)
[2020-11-01 13:18] LABS: Amphetamine Screen,Urine PRESUMPTIVE NEGATIVE; Benzodiazepines Screen,Urine PRESUMPTIVE NEGATIVE; Cannabinoid Screen,Urine PRESUMPTIVE NEGATIVE; Cocaine Screen,Urine PRESUMPTIVE NEGATIVE; Methadone Screen,Urine PRESUMPTIVE NEGATIVE; Opiate Screen,Urine PRESUMPTIVE NEGATIVE
[2020-11-01 14:12] VITALS: BP 128/71
== END 2020-11-01 14:15 | disposition home or self-care (01) ==
LOC: ED 10:03
DX: F31.9 Bipolar disorder, unspecified (principal); N93.8 Other specified abnormal uterine and vaginal bleeding; Z98.890 Other specified postprocedural states; Z91.048 Other nonmedicinal substance allergy status; Z88.1 Allergy status to other antibiotic agents; Z88.8 Allergy status to other drugs, medicaments and biological substances
CPT/HCPCS: 36415; 80307; 81001; 84702; 85025; 86900; 86901; 87086; 87210; 87591

== ENCOUNTER 2021-08-13 05:18 | Emergency (ER) | payer MEDICARE ==
--- NOTE | 2021-08-13 06:03 | Emergency Department Report ---
ED Psych HPI - General Chief Complaint: Psych Stated Complaint: MENTAL HEALTH CONCERNS Time Seen by Provider: 08/13/21 05:54 Source: patient, family Mode of arrival: Ambulatory - History of Present Illness Initial Comments: PT PARENTS STATE THAT THEY RECIEVED A CALL FROM DIANA KERN STATING THAT PT WAS AT [facility] HAVING AN ANXIETY ATTACK, PARENTS REPORT THAT PT HAS BEEN DISRUPTIVE AT HOME, NOT TAKING HER PSYCH MEDICATIONS PERSCRIBED AND THAT SHE HAS NOT SLEPT IN THREE DAYS. PT DENIES SI AND HI, STATING, "I WANT TO GET OFF MY PSYCH MEDS." PT HYPERVERBAL AT TRIAGE MD Complaint: other -: Gradual, days(s) Associated Psychiatric Symptoms: racing thoughts, delusions History of same: Yes Quality: constant Improves With: none Associated Symptoms: denies: denies other symptoms, confusion, headache Treatments Prior to Arrival: none - Related Data Home Medications Medication Instructions Recorded Confirmed Last Taken Divalproex ER [DepaKOTE ER] 500 mg PO BID 02/27/17 08/13/21 10/22/19 OLANzapine [ZyPREXA] 10 mg PO QHS 08/23/19 08/13/21 10/23/19 hydrOXYzine PAMOATE [Vistaril] 25 mg PO TID 08/13/21 08/13/21 Unknown Allergies Allergy/AdvReac Type Severity Reaction Status Date / Time haloperidol [From Haldol] Allergy Unknown Verified 11/01/20 10:19 lorazepam [From Ativan] Allergy Unknown Verified 08/23/19 04:29 lithium AdvReac Unknown Verified 10/25/19 21:22 risperidone [From Risperdal] AdvReac Unknown Verified 02/27/17 16:44 ziprasidone [From Geodon] AdvReac Unknown Verified 02/27/17 16:44 ED Review of Systems ROS: Stated complaint: MENTAL HEALTH CONCERNS Other details as noted in HPI Comment: Unobtainable due to pts medical conditions ED Past Medical Hx - Past Medical History Previous Medical History?: Yes Hx Psychiatric Treatment: Yes (Bi polar) Additional medical history: pt with diagnosis of Bipolar, although she denies - Surgical History Past Surgical History?: Yes Additional Surgical History: bilateral knee surgery - Social History Smoking Status: Unknown if ever smoked - Medications Home Medications: Home Medications Medication Instructions Recorded Confirmed Last Taken Type Divalproex ER [DepaKOTE ER] 500 mg PO BID 02/27/17 08/13/21 10/22/19 History OLANzapine [ZyPREXA] 10 mg PO QHS 08/23/19 08/13/21 10/23/19 History hydrOXYzine PAMOATE [Vistaril] 25 mg PO TID 08/13/21 08/13/21 Unknown History ED Physical Exam - General Limitations: No Limitations General appearance: alert, anxious - Head Head exam: Present: atraumatic, normocephalic - Eye Eye exam: Present: normal appearance - ENT ENT exam: Present: mucous membranes moist - Neck Neck exam: Present: normal inspection - Respiratory Respiratory exam: Present: normal lung sounds bilaterally. Absent: respiratory distress - Cardiovascular Cardiovascular Exam: Present: regular rate, normal rhythm. Absent: systolic murmur, diastolic murmur, rubs, gallop - GI/Abdominal GI/Abdominal exam: Present: soft, normal bowel sounds - Extremities Exam Extremities exam: Present: normal inspection - Back Exam Back exam: Present: normal inspection - Neurological Exam Neurological exam: Present: alert, oriented X3 - Psychiatric Psychiatric exam: Present: normal affect, normal mood - Expanded Psychiatric Exam Expanded Focused psych exam: Present: psychomotor agitation, delusional, paranoid, restlessness, flight of ideas, loose associations - Skin Skin exam: Present: warm, dry, intact, normal color. Absent: rash ED Course Vital Signs 08/13/21 08/13/21 08/13/21 05:30 05:58 07:45 Temperature 98.5 F 98.9 F Pulse Rate 88 95 H Respiratory 20 18 Rate Blood Pressure 132/80 Blood Pressure 138/96 [Left] O2 Sat by Pulse 97 97 97 Oximetry 08/13/21 08/13/21 08/13/21 09:42 10:09 20:23 Temperature 98.2 F 98.7 F Pulse Rate 67 90 Respiratory 18 16 Rate Blood Pressure Blood Pressure 130/15 124/80 [Left] O2 Sat by Pulse 98 99 98 Oximetry ED Medical Decision Making - Lab Data Result diagrams: 08/13/21 05:58 08/13/21 05:58 Critical care attestation.: If time is entered above; I have spent that time in minutes in the direct care o f this critically ill patient, excluding procedure time. ED Disposition Clinical Impression: Bipolar disorder Disposition: 30 STILL A PATIENT Is pt being admited?: No Does the pt Need Aspirin: No Condition: Stable Additional Instructions: OUTPATIENT MENTAL HEALTH RESOURCES [facility], [facility] Venita Sal MD: [address], [address] [place] [address] [place] [address] [place] [facility]: [employer] [facility] [address] [place] [address] [place] [address] [phone] [facility]: [facility]: [address] [facility] [place] [address] [facility] [id number] [place] [facility]: Josiah Escobar MD: [id number] [facility] [address] [facility] [id number] [facility]: [address] [place], [place] [id number] [phone] [place] CRISIS AND ACCESS LINE: Referrals: PRIMARY CAREMD [Primary Care Provider] - 3-5 Days
[2021-08-13 06:12] LABS: Basophils % (Auto) 0.2 % (0.0-1.8); Eosinophils # (Auto) 0.1 K/mm3 (0.0-0.4); Eosinophils % (Auto) 1.2 % (0.0-4.3); Hematocrit 32.2 % (30.3-42.9); Lymphocytes % (Auto) 36.6 % (13.4-35.0); Mean Corpuscular HGB Conc 31 % (30-34); Mean Corpuscular Volume 78 fl (79-97); Monocytes # (Auto) 0.8 K/mm3 (0.0-0.8); Monocytes % (Auto) 14.3 % (0.0-7.3); Platelet Count 224 K/mm3 (140-440); Red Blood Count 4.16 M/mm3 (3.65-5.03); Red Cell Distribution Width 15.9 % (13.2-15.2)
[2021-08-13 06:27] LABS: Bilirubin,Urine NEG (Negative); Blood,Urine NEG (Negative); Color,Urine Yellow (Yellow); Mucus,Urine FEW /HPF; Protein,Urine <15 mg/dL mg/dL (Negative); Urobilinogen,Urine < 2.0 mg/dL (<2.0)
[2021-08-13 06:30] LABS: Blood Urea Nitrogen 16 mg/dL (7-17); Calcium 9.5 mg/dL (8.4-10.2); Hemolysis Index 4
[2021-08-13 06:36] LABS: Amphetamine Screen,Urine Negative; Benzodiazepines Screen,Urine Negative; Cannabinoid Screen,Urine Negative; Cocaine Screen,Urine Negative; Methadone Screen,Urine Negative; Opiate Screen,Urine Negative
[2021-08-13 06:46] LABS: BUN/Creatinine Ratio 23
--- NOTE | 2021-08-13 08:22 | History and Physical Report ---
GP History & Physical - History of Present Illness Date of admission: 08/12/21 Date of Examination: 08/13/21 Reason for Admission: Danger to self, Failure of Outpatient Treatment, Severe anxiety/depression History of Present Illness: HPI: PT PARENTS STATE THAT THEY RECIEVED A CALL FROM DIANA KERN STATING THAT PT WAS AT [facility] HAVING AN ANXIETY ATTACK, PARENTS REPORT THAT PT HAS BEEN DISRUPTIVE AT HOME, NOT TAKING HER PSYCH MEDICATIONS PERSCRIBED AND THAT SHE HAS NOT SLEPT IN THREE DAYS. PT DENIES SI AND HI, STATING, "I WANT TO GET OFF MY PSYCH MEDS." PT HYPERVERBAL AT TRIAGE The patient was seen today. She is suspicious, and psychotic. The patient is grandiose. She is acting bizarrely; whispering and has her eyes bucked. She tells me "shhhhh" as I'm trying to introduce myself to her. The patient then starts ranting off a list of details before I ask her; "I don't need medications. I'm of my right mind. Today is August 13, my name is Sean Harrell. I'm not suicidal or homicidal, the President is" etc. She points at the computer in the [place] and says "do you see that cross? I am very special to these hospitals. I have done a lot for hospitals and the mental health community." She says "I tell people I have the Covid Cure because I have other cures other than the vaccination." She then grabs my hand and raises up and bucks her eyes at me. She starts whispering and says "you are going to tell them I don't need any medication or psych admission. You are only going to tell them I need vistaril." As I'm leaving the patient says, "I don't need any meds or any admissions." PAST PSYCHIATRIC HISTORY: Diagnoses: Anxiety, Bipolar Suicide attempts or Self-harm behavior: Denies Prior psychiatric hospitalizations:Yes Substance Abuse history: Denies Previous psychiatric medications tried: Ambien, Duloxetine, Effexor, Bentropine, Abilify Outpatient treatment: unknown PAST MEDICAL HISTORY: None reported or document Family Psychiatric History: None reported or documented SOCIAL HISTORY Marital Status: Single Living Arrangements: Lives with parents Employment Status: Employed Access to guns/weapons: denies Education: 2 year College History of Abuse: Denies Legal History: Denies REVIEW OF SYSTEMS Constitutional: Negative for weight loss ENT: Negative for stridor Respiratory: Negative for cough or hemoptysis All other systems reviewed and are negative MENTAL STATUS EXAMINATION General Appearance and Behavior: Age appropriate, wearing appropriate clothes, cooperative, polite with questioning, intense eye contact Cooperation: cooperative Psychomotor Behavior: Psychomotor normal Mood: "good" Affect and affective range: congruent with stated mood Thought Process: illogical Thought Content: delusions Speech: Normal volume, Regular rate and rhythm Suicidal Ideation: Denies Homicidal Ideation: Denies hallucination: Denies Delusions: suspicious, grandiose Impulse Control: limited Insight and Judgment: Limited Memory: Intact Attention: attentive, engaging Orientation: Alert and oriented Diagnoses: Bipolar Disorder, Current episode, Depressed, Moderate- F31.32 Treatment Plan 1013 Restarted home medication PSYCHOTHERAPY: Supportive psychotherapy provided MEDICAL: Per primary team DELIRIUM PRECAUTIONS: Please re-orient patient frequently, keep lights on during the day, and minimize benzodiazepines and opiates as these medications could worsen patient's confusion. EPIDEMIOLOGY INTERN: Per medical team DISPOSITION:recommend acute psychiatric inpatient treatment Will follow. Thanks. Thank you for the consult. Case staffed with Dr. Paul Legal Status: Voluntary Reaction to Hospitalization: Accepting Medications and Allergies Allergies Allergy/AdvReac Type Severity Reaction Status Date / Time haloperidol [From Haldol] Allergy Unknown Verified 11/01/20 10:19 lorazepam [From Ativan] Allergy Unknown Verified 08/23/19 04:29 lithium AdvReac Unknown Verified 10/25/19 21:22 risperidone [From Risperdal] AdvReac Unknown Verified 02/27/17 16:44 ziprasidone [From Geodon] AdvReac Unknown Verified 02/27/17 16:44 Home Medications Medication Instructions Recorded Confirmed Last Taken Type Divalproex ER [DepaKOTE ER] 500 mg PO BID 02/27/17 08/13/21 10/22/19 History OLANzapine [ZyPREXA] 10 mg PO QHS 08/23/19 08/13/21 10/23/19 History hydrOXYzine PAMOATE [Vistaril] 25 mg PO TID 08/13/21 08/13/21 Unknown History Results - Results Labs/Vitals: Laboratory Last Values WBC 5.4 K/mm3 (4.5-11.0) 08/13/21 05:58 RBC 4.16 M/mm3 (3.65-5.03) 08/13/21 05:58 Hgb 10.0 gm/dl (10.1-14.3) L 08/13/21 05:58 Hct 32.2 % (30.3-42.9) 08/13/21 05:58 MCV 78 fl (79-97) L 08/13/21 05:58 MCH 24 pg (28-32) L 08/13/21 05:58 MCHC 31 % (30-34) 08/13/21 05:58 RDW 15.9 % (13.2-15.2) H 08/13/21 05:58 Plt Count 224 K/mm3 (140-440) 08/13/21 05:58 Lymph % (Auto) 36.6 % (13.4-35.0) H 08/13/21 05:58 Crisp % (Auto) 14.3 % (0.0-7.3) H 08/13/21 05:58 Eos % (Auto) 1.2 % (0.0-4.3) 08/13/21 05:58 Baso % (Auto) 0.2 % (0.0-1.8) 08/13/21 05:58 Lymph # (Auto) 2.0 K/mm3 (1.2-5.4) 08/13/21 05:58 Crisp # (Auto) 0.8 K/mm3 (0.0-0.8) 08/13/21 05:58 Eos # (Auto) 0.1 K/mm3 (0.0-0.4) 08/13/21 05:58 Baso # (Auto) 0.0 K/mm3 (0.0-0.1) 08/13/21 05:58 Seg Neutrophils % 47.7 % (40.0-70.0) 08/13/21 05:58 Seg Neutrophils # 2.6 K/mm3 (1.8-7.7) 08/13/21 05:58 Sodium 141 mmol/L (137-145) 08/13/21 05:58 Potassium 4.2 mmol/L (3.6-5.0) 08/13/21 05:58 Chloride 102.7 mmol/L (98-107) 08/13/21 05:58 Carbon Dioxide 26 mmol/L (22-30) 08/13/21 05:58 Anion Gap 17 mmol/L 08/13/21 05:58 BUN 16 mg/dL (7-17) 08/13/21 05:58 Creatinine 0.7 mg/dL (0.6-1.2) 08/13/21 05:58 Estimated GFR > 60 ml/min 08/13/21 05:58 BUN/Creatinine Ratio 23 % 08/13/21 05:58 Glucose 94 mg/dL (65-100) 08/13/21 05:58 Calcium 9.5 mg/dL (8.4-10.2) 08/13/21 05:58 Urine Color Yellow (Yellow) 08/13/21 Unknown Urine Turbidity Clear (Clear) 08/13/21 Unknown Urine pH 6.0 (5.0-7.0) 08/13/21 Unknown Ur Specific [place] 1.027 (1.003-1.030) 08/13/21 Unknown Urine Protein <15 mg/dl mg/dL (Negative) 08/13/21 Unknown Urine Glucose (UA) Neg mg/dL (Negative) 08/13/21 Unknown Urine Ketones Tr mg/dL (Negative) 08/13/21 Unknown Urine Blood Neg (Negative) 08/13/21 Unknown Urine Nitrite Neg (Negative) 08/13/21 Unknown Urine Bilirubin Neg (Negative) 08/13/21 Unknown Urine Urobilinogen < 2.0 mg/dL (<2.0) 08/13/21 Unknown Ur Leukocyte Esterase Neg (Negative) 08/13/21 Unknown Urine WBC (Auto) 1.0 /HPF (0.0-6.0) 08/13/21 Unknown Urine RBC (Auto) 1.0 /HPF (0.0-6.0) 08/13/21 Unknown U Epithel Cells (Auto) 1.0 /HPF (0-13.0) 08/13/21 Unknown Urine Mucus Few /HPF 08/13/21 Unknown Salicylates < 0.3 mg/dL (2.8-20.0) L 08/13/21 05:58 Urine Opiates Screen Negative 08/13/21 Unknown Urine Methadone Screen Negative 08/13/21 Unknown Acetaminophen 5.0 ug/mL (10.0-30.0) L 08/13/21 05:58 Ur Barbiturates Screen Negative 08/13/21 Unknown Ur Phencyclidine Scrn Negative 08/13/21 Unknown Ur Amphetamines Screen Negative 08/13/21 Unknown U Benzodiazepines Scrn Negative 08/13/21 Unknown Urine Cocaine Screen Negative 08/13/21 Unknown U Marijuana (THC) Screen Negative 08/13/21 Unknown Drugs of Abuse Note Disclamer 08/13/21 Unknown Last Vital Signs Temp 98.9 F 08/13/21 07:45 Pulse 95 H 08/13/21 07:45 Resp 18 08/13/21 07:45 BP 138/96 08/13/21 07:45 Pulse Ox 97 08/13/21 07:45 Physical Examination - Constitutional Vitals: Vital Signs Temp Pulse Resp BP Pulse Ox 98.9 F 95 H 18 138/96 97 08/13/21 07:45 08/13/21 07:45 08/13/21 07:45 08/13/21 07:45 08/13/21 07:45 Temperature -Last 24 Hours Temperature 98.9 F Temperature 98.5 F Mental Status Exam - Vital signs Last Vital Signs Temp 98.9 F 08/13/21 07:45 Pulse 95 H 08/13/21 07:45 Resp 18 08/13/21 07:45 BP 138/96 08/13/21 07:45 Pulse Ox 97 08/13/21 07:45 Physician Certification - Certification Statement Physician Certification Statement: This is an acknowledgement statement that SEAN HARRELL is a 40 year old F who requires inpatient psychiatric admission for treatment which could reasonably be expected to improve the patient's condition for Estimated period of time patient will need to remain in the hospital: [ ] Plan for post-hospital care: [ ]
[2021-08-13] MEDS: DIVALPROEX ER 500 MG TAB PO SCH ×2 (10:08→22:39)
[2021-08-13] MEDS ORDERED: diphenhydrAMINE 50 MG/ML VIAL IM ONE (18:52)
[2021-08-13] MEDS ORDERED: ZIPRASIDONE MESYLATE 20 MG VIAL IM ONE (18:52)
[2021-08-13] MEDS ORDERED: HALOPERIDOL LACTATE 5 MG/1 ML INJ IM ONE (19:12)
[2021-08-13] MEDS: hydrOXYzine PAMOATE 25 MG CAP PO SCH (20:56)
[2021-08-14] MEDS: hydrOXYzine PAMOATE 25 MG CAP PO SCH ×3 (09:11→22:05)
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
--- NOTE | 2021-08-14 11:55 | Emergency Department Report ---
Blank Doc - Documentation Documentation: 40-year-old female remains hyperverbal and delusional requiring seclusion. Cu rrently on 1013. Labs reviewed and patient does not have a test. Urine and serum hCG test ordered. It is unclear if patient will be compliant with either at this time. Patient is compliant with most of her p.o. medication. Awaiting placement
[2021-08-14] MEDS: DIVALPROEX ER 500 MG TAB PO SCH ×2 (13:52→22:05)
--- NOTE | 2021-08-15 08:31 | Progress Note ---
Subjective - Reason for Consult Consult date: 08/15/21 Reason for consult: manic - Chief Complaint Chief complaint: The patient was seen today. She is in the seclusion room. Notes state the patient was agitated, loud and hyperverbal. The patient is still delusional, but she says her mind is clearer now. She is asking to come out of seclusion. She is heard banging on the door. She says benadryl works to help calm her down and makes her antipsychotic work better. Will Increase Olanzapine and add prn IM benadryl. REVIEW OF SYSTEMS Constitutional: Negative for weight loss ENT: Negative for stridor Respiratory: Negative for cough or hemoptysis All other systems reviewed and are negative MENTAL STATUS EXAMINATION General Appearance and Behavior: Age appropriate, wearing appropriate clothes, cooperative, polite with questioning, intense eye contact, anxious, intrusive Cooperation: cooperative Psychomotor Behavior: Psychomotor normal Mood: [place]onte Affect and affective range: congruent with stated mood Thought Process: illogical Thought Content: delusions Speech: pressured Suicidal Ideation: Denies Homicidal Ideation: Denies hallucination: Denies Delusions: suspicious, grandiose Impulse Control: limited Insight and Judgment: Limited Memory: Intact Attention: attentive, engaging Orientation: Alert and oriented Diagnoses: Bipolar Disorder, Current episode, Depressed, Moderate- F31.32 Treatment Plan [address] 500mg po TID Vistaril 50mg po TID Increased Olanzapine 20mg po daily Start Benadryl 50mg IM q6h prn PSYCHOTHERAPY: Supportive psychotherapy provided MEDICAL: Per primary team DELIRIUM PRECAUTIONS: Please re-orient patient frequently, keep lights on during the day, and minimize benzodiazepines and opiates as these medications could worsen patient's confusion. 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 Thanks. Thank you for the consult. Case staffed with Dr. Paul Mental Status Exam - Vital signs Last Vital Signs Temp 98.7 F 08/13/21 20:23 Pulse 90 08/13/21 20:23 Resp 16 08/13/21 20:23 BP 124/80 08/13/21 20:23 Pulse Ox 99 08/14/21 10:00
[2021-08-15] MEDS ORDERED: diphenhydrAMINE 50 MG/ML VIAL IM PRN (09:00)
--- NOTE | 2021-08-15 12:40 | Emergency Department Report ---
Blank Doc - Documentation Documentation: Chart reviewed 40-year-old female still requiring 1013 for psychosis and erratic behavior. Tolerating p.o. medications. Awaiting placement
[2021-08-15 14:09] VITALS: BP 150/90
[2021-08-15] MEDS: hydrOXYzine PAMOATE 25 MG CAP PO SCH ×2 (14:10→14:11)
[2021-08-15] MEDS: DIVALPROEX ER 500 MG TAB PO SCH ×2 (14:10)
== END 2021-08-15 15:28 | disposition still patient (30) ==
LOC: ED 05:18
DX: F31.9 Bipolar disorder, unspecified (principal); Z88.8 Allergy status to other drugs, medicaments and biological substances; Z79.899 Other long term (current) drug therapy; Z20.822 Contact with and (suspected) exposure to COVID-19
CPT/HCPCS: 36415; 80048; 80307; 81001; 84703; 85025; 99285; U0003; 80320; G0480